=== PATIENT | female | born 1950 | race African-American/Black ===

== ENCOUNTER → 2022-03-12 | Outpatient (CLI) | payer OTHER, MEDICARE ==
[~2022-03-12] MED LIST: CARV6.2541 PO; CYAN500T7 PO; LOSA100T14 PO; SULF500T36 PO
== END ==
LOC: LAB 12:52
PROVIDERS: ATTEND Internal Medicine Gastroenterology
DX: Z01.812 Encounter for preprocedural laboratory examination (principal); Z20.822 Contact with and (suspected) exposure to COVID-19; Z86.010 Personal history of colon polyps
CPT/HCPCS: U0003